=== PATIENT | female | born 1965 | race Caucasian/White ===

== ENCOUNTER 2021-02-04 19:38 | Emergency (ER) | payer OTHER ==
[~2021-02-04] VITALS: Ht 162.6 cm; Wt 73.0 kg
[2021-02-04] MEDS ORDERED: ARIMIDEX1 MG (19:56)
[2021-02-04] MEDS ORDERED: WARFARIN SODIUM4 MG (19:57)
[2021-02-04] MEDS ORDERED: PERCOCET 5-3251 EACH (19:57)
[2021-02-04 20:14] LABS: ABSOLUTE BASOPHILS 0.1 thou/uL (0.0-0.2); ABSOLUTE EOSINOPHILS 0.3 thou/uL (0.0-0.7); ABSOLUTE LYMPHOCYTES 1.1 thou/uL (0.8-5.3); ABSOLUTE MONOCYTES 0.8 thou/uL (0.0-1.2); ABSOLUTE NEUTROPHILS 6.3 thou/uL (1.6-8.1); BASOPHILS 1.3 %; EOSINOPHILS 3.6 %; HEMATOCRIT 38.8 % (37.0-47.0); HEMOGLOBIN 12.9 gm/dL (12.0-15.0); LYMPHOCYTES 12.6 %; MCH 31.8 pg (26.0-34.0); MCHC 33.3 g/dL (28.0-37.0); MCV 95.4 fL (80.0-100.0); MONOCYTES 9.5 %; MPV 9.1 fl. (7.2-11.1); NUCLEATED RBCS 0 /100WBC; PLATELET COUNT* 180 thou/uL (150-400); RBC 4.07 mil/uL (4.20-5.00); RDW-CV 13.5 % (10.5-14.5); WBC 8.6 thou/uL (4.0-11.0)
[2021-02-04 20:24] LABS: CALCIUM 9.1 mg/dL (8.5-10.1); CREATININE 0.6 mg/dL (0.6-1.3)
[2021-02-04 20:34] LABS: ALBUMIN 3.2 g/dL (3.4-5.0); TOTAL BILIRUBIN 0.4 mg/dL (<0.1-1.0); TOTAL PROTEIN 7.2 g/dL (6.4-8.2)
[2021-02-04 22:30] VITALS: BP 130/60
== END 2021-02-04 22:30 | disposition home or self-care (01) ==
LOC: M.ERS 19:38
PROVIDERS: Nurse Practitioner Family
DX: E07.9 Disorder of thyroid, unspecified (principal); Z20.822 Contact with and (suspected) exposure to COVID-19; E87.6 Hypokalemia; F17.210 Nicotine dependence, cigarettes, uncomplicated; Z86.718 Personal history of other venous thrombosis and embolism; Z90.89 Acquired absence of other organs; Z85.3 Personal history of malignant neoplasm of breast; Z79.899 Other long term (current) drug therapy; Z79.01 Long term (current) use of anticoagulants